=== PATIENT | female | born 1990 | race Caucasian/White ===

== ENCOUNTER 2017-06-26 21:41 | Emergency (ER) | payer SELFPAY ==
[2017-06-26] MEDS ORDERED: Diazepam 5 MG TAB ONE (22:27)
[2017-06-26] MEDS ORDERED: HYDROcodone/Acetaminophen 10/325 mg Tablet ONE (22:27)
[2017-06-26] MEDS ORDERED: Naproxen 500 MG TAB ONE (22:28)
== END 2017-06-26 22:45 | disposition home or self-care (01) ==
LOC: MADERS 21:41
DX: M54.10 Radiculopathy, site unspecified (principal); F17.210 Nicotine dependence, cigarettes, uncomplicated
CPT/HCPCS: 99283

== ENCOUNTER 2018-02-22 04:06 | Emergency (ER) | payer SELFPAY ==
[2018-02-22] MEDS ORDERED: Ondansetron ODT 4 MG TAB ONE (04:21)
[2018-02-22 04:40] LABS: Bilirubin Negative (Negative); Blood, Urine Negative (Negative); Clarity Slightly Cloudy (Clear); Glucose, Urine (Dipstick) Negative (Negative); Leukocyte Negative (Negative); Nitrite Negative (Negative); Protein, Urine (Dipstick) Negative (Neg-Trace); Urobilinogen 0.2 mg/dL (0.2-1.0); pH, Urine 5.5 (5.0-9.0)
[2018-02-22 04:47] LABS: Pregnancy Test - Urine (BHCG) Negative (Negative); Pregu Control Background? CLEAR/WHITE (CLR/WHITE); Pregu Control Bar Appear? YES (CONTROL BAR)
[2018-02-22] MEDS ORDERED: Promethazine HCl 25 MG/ML VIAL ONE (05:01)
== END 2018-02-22 05:09 | disposition home or self-care (01) ==
LOC: MADERS 04:06
DX: R11.2 Nausea with vomiting, unspecified (principal); F17.210 Nicotine dependence, cigarettes, uncomplicated
CPT/HCPCS: 81003; 81025; 99284; J2550; Q0162

== ENCOUNTER 2020-02-19 12:54 | Emergency (ER) | payer OTHER, SELFPAY ==
[2020-02-20 14:29] LABS: SARS-CoV-2 MS2 Positive; SARS-CoV-2 N Gene Negative; SARS-CoV-2 S Gene Negative; SARS-CoV-2 orf1ab Negative
== END 2020-02-19 14:25 | disposition home or self-care (01) ==
LOC: MADERS 12:54
DX: J31.0 Chronic rhinitis (principal); Z20.828 Contact with and (suspected) exposure to other viral communicable diseases; F17.210 Nicotine dependence, cigarettes, uncomplicated
CPT/HCPCS: 87635; 99283; U0003

== ENCOUNTER 2021-04-28 00:46 | Emergency (ER) | payer OTHER, SELFPAY ==
[2021-04-28] MEDS ORDERED: Ketorolac Tromethamine 60 MG/2 ML VIAL ONE (01:21)
[2021-04-28] MEDS ORDERED: Promethazine HCl 25 MG/ML VIAL ONE (01:21)
== END 2021-04-28 03:00 | disposition home or self-care (01) ==
LOC: MADERS 00:46
DX: G43.909 Migraine, unspecified, not intractable, without status migrainosus (principal); E66.9 Obesity, unspecified; F17.210 Nicotine dependence, cigarettes, uncomplicated; Z79.899 Other long term (current) drug therapy
CPT/HCPCS: 96372; 99283; J1885; J2550